=== PATIENT | female | born 1945 | race African-American/Black ===

== ENCOUNTER → 2023-04-24 12:57 | Outpatient (REF) | payer MEDICARE, OTHER, SELFPAY | LOC: RCS 12:57 | PROVIDERS: ATTENDING PHYSICIAN Internal Medicine; FAMILY PHYSICIAN Internal Medicine | DX: I49.3 Ventricular premature depolarization (principal) | CPT/HCPCS: 93225; 93226 ==

== ENCOUNTER → 2023-04-25 10:00 | Outpatient (REF) | payer MEDICARE, OTHER, SELFPAY | LOC: DHCBC MAIN 10:00 | PROVIDERS: ATTENDING PHYSICIAN Internal Medicine; FAMILY PHYSICIAN Internal Medicine | DX: I49.3 Ventricular premature depolarization (principal) | CPT/HCPCS: 93306 ==

== ENCOUNTER → 2023-05-02 10:54 | Outpatient (REF) | payer MEDICARE, OTHER, SELFPAY | LOC: DHCBC/DCA 10:54 | PROVIDERS: ATTENDING PHYSICIAN Internal Medicine; FAMILY PHYSICIAN Internal Medicine | DX: I49.3 Ventricular premature depolarization (principal); R94.31 Abnormal electrocardiogram [ECG] [EKG] | CPT/HCPCS: 78452; 93017; A9500 ==

== ENCOUNTER → 2023-08-27 12:59 | Outpatient (REF) | payer MEDICARE, OTHER, SELFPAY | LOC: WDC 12:59 | PROVIDERS: ATTENDING PHYSICIAN Internal Medicine | DX: Z12.31 Encounter for screening mammogram for malignant neoplasm of breast (principal) | CPT/HCPCS: 77063; 77067 ==

== ENCOUNTER 2023-10-15 20:46 | Emergency (ER) | payer MEDICARE, OTHER, SELFPAY ==
[2023-10-15 20:52] VITALS: BP 166/94
[2023-10-15 21:38] LABS: ALT (SGPT) 18 U/L (0-35); AST (SGOT) 34 U/L (14-36); Albumin 4.4 g/dl (3.5-5.0); Alkaline Phosphatase 72 U/L (38-126); Blood Urea Nitrogen 18 mg/dl (7-17); Calcium 9.8 mg/dl (8.4-10.2); Carbon Dioxide 32 mmol/L (22-30); Chloride 101 mmol/L (98-107); Glucose 101 mg/dl (70-99); Sodium 142 mmol/L (135-145); Total Bilirubin 0.5 mg/dl (0.2-1.3); Total Protein 7.3 g/dl (6.3-8.2); eGFR 58.02
[2023-10-15 21:45] LABS: Troponin I < 0.012 ng/ml
[2023-10-15 21:55] LABS: % Basophils 0.9 % (0-2); % Eosinophils 1.7 % (0-6); % Immature Granulocytes 0.2 % (0-0.5); % Lymphocytes 44.7 % (20.5-51.1); % Neutrophils 44.5 % (42.2-75.2); Absolute Basophils 0.1 10^3/uL (0-0.2); Absolute Eosinophils 0.1 10^3/uL (0-0.7); Absolute Lymphocytes 2.4 10^3/uL (1.2-3.4); Absolute Monocytes 0.4 10^3/uL (0.1-0.6); Absolute Neutrophils 2.4 10^3/uL (1.4-6.5); Hematocrit 36.2 % (37.0-47.0); Hemoglobin 12.4 g/dL (12.0-16.0); Mean Corp Hgb Conc. 34.3 g/dL (33.0-37.0); Mean Corpuscular Hgb 32.4 pg (27.0-31.0); Mean Corpuscular Volume 94.5 fL (81.0-99.0); Mean Platelet Volume 13.5 fL (7.4-10.4); Nucleated Red Blood Cells % 0 %; Platelet Count 124 10^3/uL (130-400); Red Blood Cell Count 3.83 10^6/uL (4.20-5.40); White Blood Cell Count 5.4 10^3/uL (4.8-10.8)
[2023-10-15 23:08] VITALS: BP 173/74
--- NOTE | 2023-10-15 23:16 | ED.GENMED ---
History of Present Illness
General
Chief Complaint: Chest Pain
Source: patient
Exam Limitations: none
Time Seen by Provider: 10/15/23 23:03
History of Present Illness
History of Present Illness:
78-year-old female was at her computer at about 6 PM when she developed sudden very brief localized anterior lower chest pain. Lasted seconds. Described as sharp. Had 3-4 episodes over about 30 minutes. No further episodes. Feels fine now. Did
a treadmill earlier without significant issues. Denies pleuritic pain shortness of breath nausea diaphoresis or radiation.
Past History
Past History
ED Past Medical History: Arrthythmia; Negative IDDM or NIDDM
ED Past Surgical History: Other (Earlobe surgery)
Social History
Tobacco: Non-smoker
Alcohol: None
Personal:
Living: with family
Employment: Retired
Family History
Family History: Diabetes
Review of Systems
Review of Systems
All Other Systems: Not applicable
Constitutional: Denies fever
Respiratory: Denies trouble breathing
Cardiac: Denies palpitations or syncope
ABD/GI: Denies abdominal pain
Phy Exam
Physical Exam
Physical Exam:
GENERAL: Alert and oriented in no apparent distress
EYE: Orbits normal.
NECK: Supple
CARDIAC: Regular rate and rhythm without any obvious murmurs.
LUNGS: Clear breath sounds,normal
ABDOMEN: Soft, without focal tenderness or distention
NEUROLOGICAL: Alert and oriented , grossly non-focal
SKIN: Warm and dry, no rash or lesion, no discoloration, skin intact.
MUSCULOSKELETAL: No edema,no deformity.Good color
PSYCH: Normal and appropriate interaction.
Scores
Heart Score for Chest Pain Patients
STEMI patient?: No
History: Slightly or Non-Suspicious
ECG: Normal
Age: >/= 65 years
Risk Factors: No Risk Factors
Troponin: </= Normal Limit
Heart Score for Chest Pain Patients: 2
Heart Score Risk: 2.5% MACE over next 6 weeks
Course
Orders/Labs/Results
Orders:
Orders
10/15/23 20:54
ECG [Electrocardiogram (*1)] Urgent
Reason for Study: Chest Pain
10/15/23 20:55
EKG- Treatment ONCE
10/15/23 21:11
Complete Blood Count/With Diff Urgent
Comprehensive Metabolic Panel Urgent
Troponin I Urgent
10/15/23 23:16
EKG- Treatment ONCE
10/15/23 23:45
Electrocardiogram (*1) Stat
Reason for Study: Other
Other Reason for Exam: chest pain
10/15/23 23:46
Troponin I Urgent
10/16/23 00:00
CR Chest - 2 Views Urgent
Reason For Exam: Left anterior chest pain
10/16/23 00:02
Lorazepam [Ativan] 0.5 mg IV NOW STA
10/16/23 01:08
EKG- Treatment ONCE
10/16/23 01:30
Electrocardiogram (*1) Stat
Reason for Study: Other
Other Reason for Exam: chest pain
10/16/23 01:31
Troponin I Urgent
Abnormal Lab Results
10/15/23
21:11
RBC 3.83 L 10^6/uL
(4.20-5.40)
Hct 36.2 L %
(37.0-47.0)
MCH 32.4 H pg
(27.0-31.0)
Plt Count 124 L 10^3/uL
(130-400)
MPV 13.5 H fL
(7.4-10.4)
Carbon Dioxide 32 H mmol/L
(22-30)
BUN 18 H mg/dl
(7-17)
Glucose 101 H mg/dl
(70-99)
10/15/23 21:11
10/15/23 21:11
Vital Signs
Initial and Last Documented VS:
Initial Vital Signs
Temp Pulse Resp BP Pulse Ox
98 F 80 26 166/94 98
10/15/23 20:52 10/15/23 20:52 10/15/23 20:52 10/15/23 20:52 10/15/23 20:52
Last Documented Vital Signs
Temp Pulse Resp BP Pulse Ox
98 F 67 14 146/83 98
10/15/23 20:52 10/16/23 02:15 10/16/23 02:15 10/16/23 02:00 10/16/23 02:15
MDM/Problems Addressed
Differential Diagnosis Includes:
Very atypical nonexertional localized brief episodes of chest pain over 30 minutes or so that each lasted seconds. Clearly atypical for cardiac. Highly doubt pulmonary emboli. No leg swelling no tachycardia no tachypnea no recent travel history.
Currently asymptomatic. For completeness patient will have repeat cardiac testing. She did have stress test on April of this year that was unremarkable. Also an unremarkable echocardiogram.
*Critical Care Note
Total Time (30-74mins, 75-104mins- exclusive of procedures): Not Applicable
Data Reviewed
Review of Other/Old Records Reveals: Labs, Records and Testing
Update Note
Update Note:
Repeat EKG is stable. Sinus rhythm PACs. No acute changes. Repeat troponin is stable again patient's symptoms are very atypical for cardiac. Troponins have been stable. Of note. I disagree with the chief complaint on the triage note. Patient
states she had about 30 minutes of these incredibly brief localized chest pain. That was earlier. She has had none since then. Discharged to follow-up
ED Attending Note
-
Portions of this chart may have been created with voice recognition software.� Occasional wrong word or��sound alike� substitutions may have occurred due to the inherent limitations of voice recognition software.
Discharge Plan
Departure
Patient Disposition: Home (Routine Discharge)
Date of Disposition: 10/16/23
Time of Disposition: 02:31
Patient with high blood pressure during this ER visit?: Yes
Discharge Problem:
Atypical chest pain
Instructions: Chest Pain CBC Follow Up
Prescriptions:
No Action
metoprolol tartrate 25 MG tablet
25 mg PO DAILY Qty: 30 0RF
Rx Instructions:
Take 25mg in the morning.
Referrals:
Paulo Isaac MD [Family Provider] - Follow up in 2-3 days
Interventions
Interventions:
*Risk Screen - Suicide Last Done: 10/15/23 20:52
*General Assessment Last Done: 10/16/23 01:01
*Neglect/Abuse Screening Last Done: 10/15/23 20:52
ED- Fall Risk Assessment Last Done: 10/16/23 01:01
*ED COVID-19 Vaccine History Last Done: 10/16/23 01:01
ED- Cardiac Assessment Last Done: 10/15/23 23:09
Discharge Date and Time
Print Language: STATELESS
[2023-10-16] VITALS: BP 139/66
[2023-10-16 00:25] LABS: Troponin I 0.025 ng/ml
[2023-10-16 01:00] VITALS: BP 140/74
[2023-10-16 02:00] VITALS: BP 146/83
[2023-10-16 02:03] LABS: Troponin I 0.025 ng/ml
== END 2023-10-16 02:38 | disposition home or self-care (01) ==
LOC: EMR 20:46
PROVIDERS: Emergency Medicine; EMERGENCY PHYSICIAN Emergency Medicine; FAMILY PHYSICIAN Internal Medicine
DX: R07.89 Other chest pain (principal); R03.0 Elevated blood-pressure reading, without diagnosis of hypertension
CPT/HCPCS: 99285; 71046; 80053; 84484; 85025; 93005

== ENCOUNTER 2024-02-22 00:55 | Emergency (ER) | payer MEDICARE, OTHER, SELFPAY ==
[2024-02-22 01:00] VITALS: BP 161/88
[2024-02-22] MEDS: PERCOCET 5/325 1 TABLET PO (04:49)
--- NOTE | 2024-02-22 04:58 | ED.MUSCINJ ---
HPI-Injury
General
Chief Complaint: Fall
Source: patient and family
Exam Limitations: none
Time Seen by Provider: 02/22/24 04:47
Nursing documentation reviewed up to this point in time: agreed with
History of Present Illness-Injury
Initial Injury comments:
This is a pleasant 79-year-old female who presents with right shoulder pain. She states that she was walking her driveway and tripped over a rock landing on her right shoulder. Patient does report pain in the right shoulder. Denies head injury or
loss of consciousness. She states that she is not on any blood thinners. She is accompanied by family.
Past History
Past History
ED Past Medical History: Arrthythmia; Negative IDDM or NIDDM
ED Past Surgical History: Other (Earlobe surgery)
Social History
Tobacco: Non-smoker
Alcohol: None
Personal:
Living: with family
Employment: Retired
Family History
Family History: Diabetes
Review of Systems
Review of Systems
Allergies reviewed?: Yes
All Other Systems: ROS reviewed and negative except as documented in HPI and ROS
Constitutional: Reports no symptoms
EENT: Reports no symptoms
Respiratory: Reports no symptoms
Cardiac: Reports no symptoms
ABD/GI: Reports no symptoms
: Reports no symptoms
Musculoskeletal: Reports joint pain, joint swelling and muscle pain
Skin: Reports no symptoms
Neurological: Reports no symptoms
Endocrine: Reports no symptoms
Hematologic/Lymphatic: Reports no symptoms
Psychiatric: Reports no symptoms
Phy Exam
General Physical Exam
General Presentation: well appearing and no apparent distress
General Skin: warm and dry
General Habitus: normal
General Mental: alert
General Hydration: appears well hydrated
ENT Exam
ENT Exam: EOMI, pharynx normal, neck supple and normocephalic
Eye Exam
Eye Exam: PERRL, cornea clear and conjunctiva normal
Cardiovascular Exam
Cardiovascular Exam: regular rate/rhythm, no edema, no murmur and normal peripheral pulses
Pulmonary Exam
Pulmonary Exam: lungs clear, no respiratory distress, no rales, no crackles, no rhonchi, no stridor, no wheezing and no cough
Gastrointestinal Exam
Gastrointestinal Exam: normal bowel sounds, non tender, soft, no organomegaly, no pulsatile mass and non distended
Neurological Exam
Neurological Exam: alert, oriented x3, no motor deficits and speech normal
Musculoskeletal Exam
Musculoskeletal Exam: full ROM and no edema
Skin Exam
Skin Exam: normal color, warm/dry, no rash and no petechia
Psychiatric Exam
Psychiatric Exam: normal mood/affect
Injury Course
Orders/Labs/Results
Orders:
Orders
02/22/24 01:10
Shoulder, Right 2 Views [CR Shoulder - Right Min 2 View] Urgent
Comment:
Reason For Exam: fall onto R shoulder standing position, pain with
02/22/24 04:47
Oxycodone/Acetaminophen [Percocet 5/325] 1 tablet PO NOW STA
02/22/24 04:48
Oxycodone/Acetaminophen [Percocet 5/325] 1 tablet .ROUTE .STK-MED ONE
MDM/Problems Addressed
Differential Diagnosis Includes:
Shoulder dislocation, shoulder fracture, sprain
MDM/Problems Addressed:
79-year-old female with mechanical fall, injury to the right shoulder
Chronic conditions affecting care:
None
*Radiology
Radiology exam reviewed: preliminary read by ED provider (Right humeral head fracture, minimally displaced)
*Pulse Oximetry
Patient hypoxic: no
*Critical Care Note
Total Time (30-74mins, 75-104mins- exclusive of procedures): Not Applicable
Update Note
Update Note:
Splint checked by myself good pulse motor and sensory. Patient given a copy of her x-ray films printed out. She will follow-up with Dr. Roman.
ED Attending Note
-
Portions of this chart may have been created with voice recognition software.� Occasional wrong word or��sound alike� substitutions may have occurred due to the inherent limitations of voice recognition software.
Discharge Plan
Departure
Patient Disposition: Home (Routine Discharge)
Date of Disposition: 02/22/24
Time of Disposition: 05:57
Patient with high blood pressure during this ER visit?: Yes
Condition: Fair
Discharge Problem:
Fracture of head of humerus
Instructions: Preventing falls in adults, Shoulder or upper arm fracture, BLOOD PRESSURE
Prescriptions:
New
oxycodone-acetaminophen [Percocet] 5-325 mg tablet
1 tab PO Q6HPRN PRN (Reason: pain) Qty: 7 0RF
No Action
metoprolol tartrate 25 MG tablet
25 mg PO DAILY Qty: 30 0RF
Rx Instructions:
Take 25mg in the morning.
Referrals:
Josh Roman MD [Active] - Next open appointment
Activity Restrictions/Additional Instructions:
Tylenol and Motrin for pain
That was sent to your pharmacy electronically. As discussed do not mix it with Tylenol as Percocet does contain acetaminophen.
It was a pleasure meeting you and taking part in your care. We hope for your continued healing and wellness.
Please read discharge instructions in their entirety. However, they are for general education and may not describe your exact diagnosis at discharge. Information on your ER visit and medical conditions were discussed with you along with appropriate
follow up information...
If indicated, please take your medications as instructed and indicated on discharge paperwork.
Please schedule a follow up appointment as directed. Call to schedule an appointment
Please return to the emergency department with ANY change in, persisting, or worsening of symptoms. If any of your symptoms do not improve, or persist, or become more severe within 6-12 hours, please return to the emergency department for further
care.
Please return to the emergency department if you develop a headache, neck pain/stiffness, fever greater than 100.4F, chest pain, shortness of breath, persistent nausea, vomiting, slurred speech, difficulty walking, numbness/tingling, weakness, signs
of infection or any other symptoms that are worrisome to you.
If you have any questions or concerns please do not hesitate to call the Hospital at or E-mail me directly at [email or web address]
Interventions
Interventions:
*Risk Screen - Suicide Last Done: 02/22/24 01:00
*General Assessment Last Done: 02/22/24 01:00
*Neglect/Abuse Screening Last Done: 02/22/24 01:00
ED- Fall Risk Assessment Last Done: 02/22/24 01:00
*ED COVID-19 Vaccine History Last Done: 02/22/24 01:00
*Nursing Disposition Last Done: 02/22/24 06:07
ED-Musculoskeletal Assessment Last Done: 02/22/24 04:59
ED- Neurological Assessment Last Done: 02/22/24 04:59
ED-Skin Assessment Last Done: 02/22/24 04:59
Discharge Date and Time
Discharge Date/Time: 02/22/24 06:07
Print Language: NEPALI
[2024-02-22 06:00] VITALS: BP 148/77
== END 2024-02-22 06:07 | disposition home or self-care (01) ==
LOC: EMR 00:55
PROVIDERS: EMERGENCY PHYSICIAN Student in an Organized Health Care Education/Training Program; FAMILY PHYSICIAN Internal Medicine
DX: S42.291A Other displaced fracture of upper end of right humerus, initial encounter for closed fracture (principal); W18.09XA Striking against other object with subsequent fall, initial encounter
CPT/HCPCS: 99283; 73030

== ENCOUNTER 2024-04-18 07:55 | Outpatient (RCR) | payer MEDICARE, OTHER, SELFPAY | END 2024-04-18 23:59 | disposition home or self-care (01) | LOC: RPT 07:55 | PROVIDERS: ATTENDING PHYSICIAN Physician Assistant; FAMILY PHYSICIAN Internal Medicine | DX: S42.294D Other nondisplaced fracture of upper end of right humerus, subsequent encounter for fracture with routine healing (principal); Z73.6 Limitation of activities due to disability; M62.81 Muscle weakness (generalized); X58.XXXD Exposure to other specified factors, subsequent encounter | CPT/HCPCS: 97010; 97110; 97140; 97162 ==

== ENCOUNTER 2024-05-13 15:01 | Outpatient (RCR) | payer MEDICARE, OTHER, SELFPAY | END 2024-05-13 23:59 | disposition home or self-care (01) | LOC: RPT 15:01 | PROVIDERS: ATTENDING PHYSICIAN Physician Assistant; FAMILY PHYSICIAN Internal Medicine | DX: S42.294D Other nondisplaced fracture of upper end of right humerus, subsequent encounter for fracture with routine healing (principal); Z73.6 Limitation of activities due to disability; M62.81 Muscle weakness (generalized); X58.XXXD Exposure to other specified factors, subsequent encounter | CPT/HCPCS: 97010; 97110; 97140 ==

== ENCOUNTER 2024-05-28 08:55 | Outpatient (RCR) | payer MEDICARE, OTHER, SELFPAY | END 2024-06-05 07:33 | disposition home or self-care (01) | LOC: RPT 08:55 | PROVIDERS: ATTENDING PHYSICIAN Physician Assistant; FAMILY PHYSICIAN Internal Medicine | DX: S42.294D Other nondisplaced fracture of upper end of right humerus, subsequent encounter for fracture with routine healing (principal); M62.81 Muscle weakness (generalized); X58.XXXD Exposure to other specified factors, subsequent encounter; Z73.6 Limitation of activities due to disability | CPT/HCPCS: 97010; 97110 ==

== ENCOUNTER 2024-08-23 05:35 | Emergency (ER) | payer MEDICARE, OTHER, SELFPAY ==
[2024-08-23 05:47] VITALS: BP 151/88
[2024-08-23 06:09] VITALS: BP 154/67
[2024-08-23 06:25] VITALS: BMI 23.5
--- NOTE | 2024-08-23 06:47 | ED.GENMED ---
History of Present Illness
General
Chief Complaint: Cardiac Symptoms
Source: patient
Exam Limitations: none
Time Seen by Provider: 08/23/24 06:38
History of Present Illness
History of Present Illness:
See MDM
Past History
Past History
ED Past Medical History: Arrthythmia; Negative IDDM or NIDDM
ED Past Surgical History: Other (Earlobe surgery)
Social History
Tobacco: Non-smoker
Alcohol: None
Personal:
Living: with family
Employment: Retired
Family History
Family History: Diabetes
Phy Exam
Physical Exam
Physical Exam:
See MDM
Course
Orders/Labs/Results
Orders:
Orders
08/23/24 06:02
EKG [Electrocardiogram (*1)] Urgent
Reason for Study: Palpitations
EKG- Treatment ONCE
08/23/24 07:11
Complete Blood Count/With Diff Urgent
Comprehensive Metabolic Panel Urgent
Abnormal Lab Results
08/23/24
07:11
RBC 3.76 L 10^6/uL
(4.20-5.40)
Hct 36.6 L %
(37.0-47.0)
MCH 32.7 H pg
(27.0-31.0)
Plt Count 126 L 10^3/uL
(130-400)
MPV 13.9 H fL
(7.4-10.4)
Chloride 109 H mmol/L
(98-107)
BUN 24 H mg/dl
(7-17)
Glucose 106 H mg/dl
(70-99)
08/23/24 07:11
08/23/24 07:11
Vital Signs
Initial and Last Documented VS:
Initial Vital Signs
Temp Pulse Resp BP Pulse Ox
98.5 F 74 16 151/88 98
08/23/24 05:47 08/23/24 05:47 08/23/24 05:47 08/23/24 05:47 08/23/24 05:47
Last Documented Vital Signs
Temp Pulse Resp BP Pulse Ox
98.5 F 64 17 123/63 100
08/23/24 05:47 08/23/24 07:00 08/23/24 07:00 08/23/24 07:00 08/23/24 07:00
MDM/Problems Addressed
Differential Diagnosis Includes:
Note:
CHIEF COMPLAINT(S)
Palpitations or racing heart sensation.
HISTORY OF PRESENT ILLNESS
The patient is a 79-year-old female with a known history of supraventricular tachycardia (SVT), who presents with complaints of palpitations that began upon waking. The patient reports that the sensation did not wake her, but she noticed it upon
awakening. The episode was described as a rapid heart rate that lasted for about an hour before normalizing. The patient acknowledged a previous diagnosis of SVT and mentioned that these symptoms were similar to past episodes. She has not been
taking any specific medication for SVT. Upon evaluation in the ER, the heart rate returned to normal, thus complicating the ability to determine the exact nature of the arrhythmia at the time of examination. The patient reported a recent reduction
in her exercise routine, but denies any caffeine intake, as caffeine previously caused her discomfort.
PHYSICAL EXAM
General: Well appearing and non-toxic
HEENT: protecting airway
Neck: appears supple
CV: No evidence of cyanosis.. Regular rate and rhythm
Resp: No accessory muscle use
Abd: Non-distended
Extremities: No deformities. No leg edema or tenderness
Neuro: alert
Psych: Normal affect
Skin: Intact
- Reviewed nursing notes and vital signs.
PROBLEM LIST
Acute:
- Palpitations with suspected supraventricular tachycardia (SVT).
PLAN
- Continuous monitoring of cardiac rhythm while in the ER.
- Blood work to evaluate any potential electrolyte imbalances or other abnormalities.
- If cardiac evaluation remains normal and symptoms do not recur, discharge with instructions to contact her new grad rn, Dr. Piña.
- Recommended follow-up with her cardiologists office to discuss potentially implementing a Holter monitor for ongoing assessment of cardiac rhythm anomalies.
DIFFERENTIAL DIAGNOSIS
The Differential Diagnosis includes, in no particular order and is not limited to:
1. Supraventricular Tachycardia (SVT)
2. Atrial Fibrillation
3. Paroxysmal Atrial Tachycardia
4. Anxiety or Panic Attack
5. Hyperthyroidism
6. Electrolyte Imbalance
7. Anemia
8. Myocardial Ischemia
9. Structural Heart Disease
10. Medication-induced Tachycardia
EKG
My independent EKG interpretation is:
- Sinus rhythm
- Normal axis
- No ST-Elevation Myocardial Infarction (STEMI)
- Heart rate: 77 beats per minute
Disposition:
SUMMARY OF ENCOUNTER
The patient, a 79-year-old female with a history of supraventricular tachycardia (SVT), presented to the emergency department with palpitations experienced upon waking. The episode consisted of a rapid heart rate lasting about an hour before
normalizing. Upon ER evaluation, her heart rate returned to normal, and continuous cardiac monitoring showed she remained in sinus rhythm. Blood work was performed and did not reveal significant abnormalities. The patients symptoms did not recur
during the observation period, and she expressed comfort with being discharged. The patient was advised to follow up with her new grad rn and primary care physician.
DISPOSITION
Discharge.
PLAN
Continuous cardiac rhythm monitoring was conducted during her stay in the ER. Since symptoms did not recur and initial evaluations were unremarkable, discharge instructions were focused on follow-up care. The patient was advised to contact her
new grad rn for potential consideration of a Holter monitor to assess for rhythm anomalies and maintain regular follow-ups with her new grad rn and primary care doctor to manage her SVT.
PATIENT EDUCATION AND COUNSELING
The patient was advised to reach out to her new grad rn and primary care provider to discuss her recent episode and manage her SVT. The importance of follow-up care and monitoring was emphasized.
FOLLOW-UP INSTRUCTIONS
Patient was instructed to follow up with her new grad rn and primary care provider as soon as possible to discuss potential further evaluation with a Holter monitor and ongoing management strategies for her SVT.
MEDICAL DECISION MAKING
1. Number and Complexity of Problems Addressed: Chronic conditions affecting care include a history of supraventricular tachycardia (SVT).
2. Data:
- Category 1: Tests and documents: Heart rhythm was monitored, and routine blood work was assessed.
- Category 3: Discussion of management with other physician(s): Patient was advised to consult with her new grad rn for further management.
3. Risk: Consideration of Admission/Observation: Escalation of care including admission/observation was considered given the complexity and risk of the patients presenting complaint, exam findings, and/or their underlying comorbidities. However,
ultimately I feel the patient is safe for outpatient management with close follow-up. Reasoning: Work-up reassuring, does not reveal any acute life/organ-threatening processes, patients symptoms well controlled upon reevaluation, reexamination is
reassuring, vitals are stable, patient agreeable with discharge, reliable for follow-up.
DIAGNOSIS
- Palpitations, ICD-10-CM R00.2
- Supraventricular tachycardia, ICD-10-CM I47.1
*Pulse Oximetry
SaO2: 98
Oxygen Mode of Delivery: Room air
Patient hypoxic: no
*Critical Care Note
Total Time (30-74mins, 75-104mins- exclusive of procedures): Not Applicable
ED Attending Note
-
Portions of this chart may have been created with voice recognition software.� Occasional wrong word or��sound alike� substitutions may have occurred due to the inherent limitations of voice recognition software.
Discharge Plan
Departure
Patient Disposition: Home (Routine Discharge)
Date of Disposition: 08/23/24
Time of Disposition: 09:31
Patient with high blood pressure during this ER visit?: No
Discharge Problem:
Heart palpitations
Prescriptions:
No Action
metoprolol tartrate 25 MG tablet
25 mg PO DAILY Qty: 30 0RF
Rx Instructions:
Take 25mg in the morning.
oxycodone-acetaminophen [Percocet] 5-325 mg tablet
1 tab PO Q6HPRN PRN (Reason: pain) Qty: 7 0RF
Referrals:
Paulo Isaac MD [Family Provider, Internal Medicine]
Activity Restrictions/Additional Instructions:
Please return for any worsening symptoms.
You may return at any time if you have further concerns.
Please follow up with your doctor at the first available appointment, preferably this week.
Please make an appointment to see your new grad rn.
Thank you for choosing [facility].
Interventions
Interventions:
*Risk Screen - Suicide Last Done: 08/23/24 05:47
*General Assessment Last Done: 08/23/24 05:47
*Neglect/Abuse Screening Last Done: 08/23/24 05:47
*ED- Fall Risk Assessment Last Done: 08/23/24 05:47
*ED COVID-19 Vaccine History Last Done: 08/23/24 05:47
ED- Pulmonary Assessment Last Done: 08/23/24 07:06
ED- Cardiac Assessment Last Done: 08/23/24 07:06
Discharge Date and Time
Print Language: [email or web address]
[2024-08-23 07:00] VITALS: BP 123/63
[2024-08-23 07:45] LABS: Hematocrit 36.6 % (37.0-47.0); Hemoglobin 12.3 g/dL (12.0-16.0); Mean Corp Hgb Conc. 33.6 g/dL (33.0-37.0); Mean Corpuscular Volume 97.3 fL (81.0-99.0); Nucleated Red Blood Cells % 0 %; Platelet Count 126 10^3/uL (130-400); Red Cell Dist. Width 11.9 % (11.5-14.5)
[2024-08-23 07:54] LABS: ALT (SGPT) 23 U/L (0-35); AST (SGOT) 34 U/L (14-36); Albumin 4.0 g/dl (3.5-5.0); Alkaline Phosphatase 60 U/L (38-126); Blood Urea Nitrogen 24 mg/dl (7-17); Calcium 9.5 mg/dl (8.4-10.2); Carbon Dioxide 28 mmol/L (22-30); Chloride 109 mmol/L (98-107); Estimated Creatinine Clearance 54 ml/min; Glucose 106 mg/dl (70-99); Potassium 4.5 mmol/L (3.5-5.1); Sodium 141 mmol/L (135-145); Total Protein 6.8 g/dl (6.3-8.2); eGFR > 60.00
[2024-08-23 08:06] VITALS: BP 139/67
[2024-08-23 09:00] VITALS: BP 135/69
== END 2024-08-23 10:00 | disposition home or self-care (01) ==
LOC: EMR 05:35
PROVIDERS: EMERGENCY PHYSICIAN Student in an Organized Health Care Education/Training Program; FAMILY PHYSICIAN Internal Medicine
DX: R00.2 Palpitations (principal)
CPT/HCPCS: 99283; 80053; 85025; 93005

== ENCOUNTER → 2024-09-19 11:10 | Outpatient (REF) | payer MEDICARE, OTHER, SELFPAY | LOC: RCS 11:10 | PROVIDERS: ATTENDING PHYSICIAN Nurse Practitioner; FAMILY PHYSICIAN Internal Medicine | DX: I10 Essential (primary) hypertension (principal); E78.2 Mixed hyperlipidemia; I47.10 Supraventricular tachycardia, unspecified; I34.0 Nonrheumatic mitral (valve) insufficiency | CPT/HCPCS: 93306 ==

== ENCOUNTER 2025-01-01 05:01 | Emergency (ER) | payer MEDICARE, OTHER, SELFPAY ==
[2025-01-01] VITALS (8 sets, daily range): BP systolic 117–169; BP diastolic 61–98; BMI 24.0
--- NOTE | 2025-01-01 06:36 | ED.GENMED ---
History of Present Illness
General
Chief Complaint: Heart Rate Problem
Source: patient
Exam Limitations: none
Time Seen by Provider: 01/01/25 06:08
Nursing documentation reviewed up to this point in time: agreed with
History of Present Illness
History of Present Illness:
Patient is a 79-year-old female who presents to the ER for evaluation of elevated heart rate. She reports that she was just waking out of sleep around 5 AM and felt that her heart rate 'was off the charts.' Her blood pressure at the time was
160/90 but her heart rate was in the 90s. She had no associated chest pain or shortness of breath. She is followed by Dr. Mena here as well as a [facility] EPS specialist. She was diagnosed in SVT in 2019. She just completed wearing a Holter
monitor for 1 month. In fact she reports that she was called last Sunday stating that she had a 4-second pause and a very brief episode of A-fib. It was recommended that she stop her metoprolol which she did on Sunday. In addition she was
recommended to start a blood thinner. She was recommended to start Eliquis but due to cost started Pradaxa instead. Presently she is asymptomatic.
Past History
Past History
ED Past Medical History: Arrthythmia; Negative IDDM or NIDDM
ED Past Surgical History: Other (Earlobe surgery)
Social History
Tobacco: Non-smoker
Alcohol: None
Personal:
Living: with family
Employment: Retired
Family History
Family History: Diabetes
Phy Exam
General Physical Exam
General Presentation: no apparent distress
General age: appears stated age
General Skin: warm and dry
General Habitus: normal
General Mental: alert
General Hydration: appears well hydrated
Cardiovascular Exam
Cardiovascular Exam: regular rate/rhythm, no murmur and normal peripheral pulses
Pulmonary Exam
Pulmonary Exam: lungs clear and no respiratory distress
Neurological Exam
Neurological Exam: alert and oriented x3
Musculoskeletal Exam
Musculoskeletal Exam: full ROM
Skin Exam
Skin Exam: normal color and warm/dry
Psychiatric Exam
Psychiatric Exam: normal mood/affect
Course
Orders/Labs/Results
Orders:
Orders
01/01/25 05:13
EKG [Electrocardiogram (*1)] Urgent
Reason for Study: Tachycardia
EKG- Treatment ONCE
01/01/25 06:50
Cardiac Monitoring- Treatment ONCE
IV Insert/Care/Rem.- Treatment PRN
01/01/25 07:08
Complete Blood Count/With Diff Urgent
Comprehensive Metabolic Panel Urgent
Magnesium Urgent
TSH Reflex To Free T4 Urgent
Abnormal Lab Results
01/01/25
07:08
WBC 3.9 L 10^3/uL
(4.8-10.8)
MCV 99.1 H fL
(81.0-99.0)
MCH 32.2 H pg
(27.0-31.0)
MCHC 32.5 L g/dL
(33.0-37.0)
Carbon Dioxide 31 H mmol/L
(22-30)
Glucose 108 H mg/dl
(70-99)
01/01/25 07:08
01/01/25 07:08
Vital Signs
Initial and Last Documented VS:
Initial Vital Signs
Temp Pulse Resp BP Pulse Ox
97.8 F 108 20 156/97 106
01/01/25 05:04 01/01/25 05:04 01/01/25 05:04 01/01/25 05:04 01/01/25 05:04
Last Documented Vital Signs
Temp Pulse Resp BP Pulse Ox
98.2 F 85 17 117/61 100
01/01/25 09:58 01/01/25 09:58 01/01/25 09:58 01/01/25 09:58 01/01/25 09:58
Analytics Director consulted with Physician
Analytics Director consulted with physician?: Yes
Name of Physician Consulted: Alina
MDM/Problems Addressed
Differential Diagnosis Includes:
Not limited to SVT tachycardia A-fib
MDM/Problems Addressed:
As documented patient is a 79-year-old female with a history of SVT followed by EPS specialist at [facility] as well as cardiology here. She recently had a Holter monitor for the past month which she reported showed a 4-second pause and a brief
episode of A-fib. Dr. Mena recommended that she stop her metoprolol which she did on Sunday and also start a blood thinner. She started Pradaxa. She presented here for fast heart rate which woke her up from sleep. Here in the ER however she
is asymptomatic and normal sinus rhythm. She is in no acute distress and well-appearing no associated chest pain. Labs are unremarkable. Case discussed with cardiology on-call Dr. Mosquera who will reach out to her for follow up appt. stable for
d/c home
Chronic conditions affecting care:
Hypertension SVT
*Pulse Oximetry
SaO2: 100
Oxygen Mode of Delivery: Room air
Patient hypoxic: no
*EKG
Interpreted by ED Provider?: Yes
Interpretation: abnormal
Comparison EKG: no changes
Heart Rate: 89
Rate: normal
Rhythm: sinus
[place]: left axis deviation
Ischemia: no ischemia
*Critical Care Note
Total Time (30-74mins, 75-104mins- exclusive of procedures): Not Applicable
Patient Management
Discussion with other providers: Coconut [employer]er (Cardiology DR Mosquera )
ED Attending Note
-
Portions of this chart may have been created with voice recognition software.� Occasional wrong word or��sound alike� substitutions may have occurred due to the inherent limitations of voice recognition software.
Discharge Plan
Departure
Patient Disposition: Home (Routine Discharge)
Date of Disposition: 01/01/25
Time of Disposition: 09:40
Patient with high blood pressure during this ER visit?: Yes
Condition: Fair
Covid-19: Not Applicable
Discharge Problem:
Palpitations
Instructions: Palpitations (DC), BLOOD PRESSURE
Prescriptions:
No Action
omeprazole 20 mg Capsule,Delayed Release(Dr/Ec)
20 mg PO PRN PRN (Reason: GERD)
lisinopril 5 mg Tablet
5 mg PO DAILY
red yeast rice 600 mg Tablet
1,200 mg PO BID
metoprolol tartrate 25 MG tablet
50 mg PO HS
Referrals:
Wang Mena MD [Active, Cardiology]
Paulo Isaac MD [Family Provider, Internal Medicine]
Activity Restrictions/Additional Instructions:
Please follow-up with your court interpreter as discussed. The office will reach out to you in the next day or 2 if they do not please call them
Interventions
Interventions:
*Risk Screen - Suicide Last Done: 01/01/25 05:08
*General Assessment Last Done: 01/01/25 05:08
*Neglect/Abuse Screening Last Done: 01/01/25 05:08
*ED- Fall Risk Assessment Last Done: 01/01/25 05:08
*ED COVID-19 Vaccine History Last Done: 01/01/25 05:08
*ED Influenza Vaccine History Last Done: 01/01/25 05:08
*Nursing Disposition Last Done: 01/01/25 09:58
ED- Cardiac Assessment Last Done: 01/01/25 07:26
ED- Pulmonary Assessment Last Done: 01/01/25 07:26
Discharge Date and Time
Discharge Date/Time: 01/01/25 10:15
Print Language: CANADIAN
[2025-01-01 07:56] LABS: ALT (SGPT) 20 U/L (0-35); AST (SGOT) 30 U/L (14-36); Albumin 4.6 g/dl (3.5-5.0); Alkaline Phosphatase 78 U/L (38-126); Blood Urea Nitrogen 16 mg/dl (7-17); Calcium 9.7 mg/dl (8.4-10.2); Carbon Dioxide 31 mmol/L (22-30); Chloride 104 mmol/L (98-107); Estimated Creatinine Clearance 60 ml/min; Glucose 108 mg/dl (70-99); Magnesium 2.1 mg/dl (1.6-2.3); Potassium 4.4 mmol/L (3.5-5.1); Sodium 140 mmol/L (135-145); Total Protein 8.2 g/dl (6.3-8.2); eGFR > 60.00
[2025-01-01 08:29] LABS: Hematocrit 42.1 % (37.0-47.0); Hemoglobin 13.7 g/dL (12.0-16.0); Mean Corp Hgb Conc. 32.5 g/dL (33.0-37.0); Mean Corpuscular Volume 99.1 fL (81.0-99.0); Nucleated Red Blood Cells % 0 %; Platelet Count 135 10^3/uL (130-400); Red Cell Dist. Width 12.1 % (11.5-14.5)
== END 2025-01-01 10:15 | disposition home or self-care (01) ==
LOC: EMR 05:01
PROVIDERS: Nurse Practitioner; EMERGENCY PHYSICIAN Emergency Medicine; FAMILY PHYSICIAN Internal Medicine
DX: R00.2 Palpitations (principal); I10 Essential (primary) hypertension; I47.10 Supraventricular tachycardia, unspecified
CPT/HCPCS: 99284; 80053; 83735; 84443; 85025; 93005

== ENCOUNTER → 2025-02-04 09:15 | Outpatient (REF) | payer MEDICARE, OTHER, SELFPAY | LOC: DHVS 09:15 | PROVIDERS: ATTENDING PHYSICIAN Internal Medicine | DX: R09.89 Other specified symptoms and signs involving the circulatory and respiratory systems (principal) | CPT/HCPCS: 93922; 93925 ==